=== PATIENT | female | born 1955 | race Caucasian/White ===

== ENCOUNTER 2018-04-03 06:59 | Day surgery (SDC) | payer BC ==
--- NOTE | 2018-03-30 09:43 | RAD REPORT ---
EXAM DESCRIPTION: Juany Peter (2 Views)03/30/2018 9:20 am CLINICAL HISTORY: Preop for cardiac catheterization/shortness of breath COMPARISON: None FINDINGS: The lungs appear clear of acute infiltrate. The heart is normal size IMPRESSION: No acute abnormalities displayed
[2018-03-30 10:01] LABS: Absolute Lymphocytes (CBC) 3.1 K/uL (0.7-4.9); Absolute Monocytes 0.7 K/uL (0.1-1.3); Absolute Neutrophil 10.6 K/uL (1.8-8.0); Basophils % 0.8 % (0-1.3); Eosinophils % 1.6 % (0-4.4); Lymphocytes % 20.9 % (15.3-44.8); MPV 9.3 fL (7.6-11.3); Monocytes % 4.7 % (3.3-12.3); RBC Red Blood Cell Count 3.77 M/uL (3.86-4.86)
[2018-03-30 10:18] LABS: Potassium 4.4 mmol/L (3.5-5.1)
[2018-03-30 10:19] LABS: Protime INR 0.94
[2018-03-30 12:57] LABS: Blood Morphology Comment NOTED (NOT SEEN); Platelet Estimate ADEQ; Urine White Blood Cell Casts OK
[2018-03-30 12:58] LABS: Stomatocytes 1+
[~2018-04-03 06:59] MED LIST: ATROPINE SULF 1 MG/10 ML SYR IV ONE; FENTANYL CITR 100 MCG/2 ML ONE; HEPA 1000U/500MLS 2,000 UNIT/1,000 ML BAG IV ONE; HEPARIN 5000 UNIT/ML 1 ML VIAL ONE; LIDOCAINE 1% MPF 30 ML VIAL ONE; MIDAZOLAM HCL 2 MG/2 ML INJ ONE; NA CHLORIDE 0.9% 0 ML ONE; NA CHLORIDE 0.9% 500 ML ONE; NICARDIPINE HCL 25 MG/10 ML IV ONE; NITROGLYCERIN/D5W 25 MG/250 ML BTL IV ONE
[2018-04-03] MEDS ORDERED: MIDAZOLAM HCL 2 MG/2 ML INJ ONE ×2 (07:51→08:00)
--- NOTE | 2018-04-03 19:21 | OP ---
Surgeon: Jesse Chavez MD Primary Care Physician: Dr. Pitt. Procedure: Left heart catheterization, coronary left ventricular angiography. Indications: Abnormal myocardial perfusion image, symptoms of possible angina with dyspnea on exerti on. Procedure Findings: The patient has normal coronaries. There is minimal plaque, 10% plaque in the r ight and LAD; definitely not capable of causing any symptoms or needing any intervention. Left ventr icular ejection fraction normal; left ventricular end-diastolic pressure 13, which is within normal l imits. No aortic valve gradient on pullback. Procedure In Detail: The patient was brought to the cardiac medical lab assistant in a fasting state. She gave i nformed consent and she was prepared and draped in usual sterile fashion, sedated with Versed and fen tanyl. Right radial approach was used. We anesthetized the skin over the right radial artery with 1 cc of 1% lidocaine. We entered the artery with a 21-gauge needle. We cannulated the artery with a 0.021-inch diameter guidewire. We used the modified Seldinger technique to place a 6-Mohawk sheath. Once the sheath was in, the radial cocktail was given consisting of nicardipine, heparin, nitroglyce rin. We used a TIG catheter and a Terumo Glidewire with a short radius J-tip and fluoroscopy to guid e the TIG catheter tip into the ascending aorta. We used the same catheter to angiogram left and rig ht coronaries and left ventricle. At the end of the procedure, the TIG catheter was withdrawn over a J-wire. The sheath was flushed, removed, and the arteriotomy closed using a TR band regular size. No complications from the procedure. Estimated blood loss 5 cc. Wool Fleece Grader: Gayle Farfan. ERIBERTO/SY Voice ID: [id number] Report ID: [id number]
== END 2018-04-03 10:55 | disposition home or self-care (01) ==
LOC: CCL 06:59
PROVIDERS: ATTEND Internal Medicine
PROC: 4A023N7 Measurement of Cardiac Sampling and Pressure, Left Heart, Percutaneous Approach (ICD-10-PCS; principal; 2018-04-03)
PROC: B201YZZ Plain Radiography of Multiple Coronary Arteries using Other Contrast (ICD-10-PCS; 2018-04-03)
PROC: B205YZZ Plain Radiography of Left Heart using Other Contrast (ICD-10-PCS; 2018-04-03)
DX: R94.39 Abnormal result of other cardiovascular function study (principal); R06.00 Dyspnea, unspecified; I10 Essential (primary) hypertension; E78.2 Mixed hyperlipidemia; F17.210 Nicotine dependence, cigarettes, uncomplicated; Z88.2 Allergy status to sulfonamides
CPT/HCPCS: 36415; 71046; 80048; 85025; 85610; 85730; 93458; C1893; J0583; J1644; J2250; J3010